=== PATIENT | male | born 1990 | race African-American/Black ===

== ENCOUNTER 2022-08-30 21:56 | Emergency (ER) | payer OTHER ==
[2022-08-30 22:13] VITALS: BP 125/80; PULSE 74; RESP 18; TEMP 98.9; BMI 23.7
[2022-08-30] MEDS ORDERED: ALPRAZolam 1 MG TABLET PO PRN (22:28)
[2022-08-30] MEDS ORDERED: ALPRAZolam 1 MG TABLET PO STA (23:14)
[2022-08-30] MEDS ORDERED: ALPRAZolam 0.25 MG TABLET ONE (23:16)
== END 2022-08-30 23:21 | disposition home or self-care (01) ==
LOC: FER 21:56
DX: R07.89 Other chest pain (principal); R06.02 Shortness of breath
CPT/HCPCS: 36415; 84484; 93005; 99284-25